=== PATIENT | male | born 1950 | race Caucasian/White ===

== ENCOUNTER 2019-02-13 06:42 | Day surgery (SDC) | payer MEDICARE, OTHER ==
[2019-02-13] MEDS ORDERED: fentaNYL 100 MCG/2 ML SDV IV ONE (06:43)
[2019-02-13] MEDS ORDERED: Midazolam 1 MG/ML 2 ML SDV IV ONE (06:43)
[2019-02-13] MEDS ORDERED: Propofol 200 MG/20 ML SDV IV ONE ×2 (06:43)
[2019-02-13] MEDS ORDERED: Lidocaine 2% 5 ML SDV INJECT ONE (06:43)
[2019-02-13] MEDS ORDERED: Dexamethasone 4 MG/ML 5 ML MDV IVPUSH ONE (06:43)
[2019-02-13] MEDS ORDERED: Ketorolac 30 MG/ML SDV IVPUSH ONE (06:43)
[2019-02-13] MEDS ORDERED: Ondansetron 4 MG/2 ML SDV IVPUSH ONE (06:43)
[2019-02-13] MEDS ORDERED: ceFAZolin 1 GM Vial IV ONE (06:45)
[2019-02-13] MEDS ORDERED: Sodium Chloride 0.9% 10 ML Syringe FLUSH PRN (06:45)
[2019-02-13] MEDS ORDERED: Lactated Ringers 1,000 ML IV SCH (06:45)
[2019-02-13] MEDS ORDERED: ceFAZolin 1 GM in Sodium Chloride 0.9% 50 ML IV ONE (06:45)
[2019-02-13] MEDS ORDERED: Lidocaine 1% with EPINEPHrine 1:100,000 20 ML MDV INJECT ONE (08:13)
[2019-02-13] MEDS ORDERED: Bupivacaine 0.5% 30 ML SDV INJECT ONE (08:13)
[2019-02-13] MEDS ORDERED: Acetaminophen/HYDROcodone 325-5 MG Tab PO PRN (09:15)
--- NOTE | 2019-02-13 09:15 | PCM.OPNOTE ---
- General Post-Op/Procedure Note Date of Surgery/Procedure: 02/13/19 Operative Procedure(s): rih repair with mesh Findings: large direct hernia Pre Op Diagnosis: rih Post-Op Diagnosis: Same Anesthesia Technique: General LMA, Local (9 ml 1 % lido with epi/0.5% buvipicaine) Primary Surgeon: Randal Harris Anesthesia Provider: Eileen Edgar Pathology: none Fluid Replacement, Intraop: 1,000 EBL in mLs: 5 Complications: None Condition: Good Free Text/Narrative:: see dictation
--- NOTE | 2019-02-13 16:04 | OR ---
DATE OF OPERATION: 02/13/2019 SURGEON: Randal Harris MD PROCEDURE PERFORMED: Right inguinal hernia repair with mesh. PREOPERATIVE DIAGNOSIS: Right inguinal hernia without mention of obstruction or gangrene. POSTOPERATIVE DIAGNOSIS: Right inguinal hernia without mention of obstruction or gangrene. INDICATIONS FOR PROCEDURE: This is a 68-year-old white male who had an incarcerated hernia that was reduced several weeks ago and he now presents for repair of this right-sided inguinal hernia. INTRAOPERATIVE FINDINGS: Direct hernia was noted. 9 mL of our local was used for intraoperative analgesia. A mesh patch, Bard mesh preshaped, lot number [id number] with a reference #[id number], expiration date 07/02/2022 was used in the repair of the defect. DESCRIPTION OF OPERATION: After an excellent LMA anesthetic was administered, the patient was prepped and draped in the usual sterile manner. The planned incision site was infiltrated with a 1:1 mixture of our local. Essentially was planned for an intersection point of the inguinal ligament approximately nursing home between the anterior-superior iliac spine and the symphysis pubis. More local was also used in the deep infiltration approximately 1 fingerbreadth medial to the anterior-superior iliac spine by infiltrating with local and doing a deep intermuscular injection. Our incision was then carried out. Electrocautery was used to dissect down to the aponeurosis of the external oblique. The external oblique had local placed underneath it and then a titi was made through the external oblique and carried out through the external ring. The cord was mobilized and controlled with a 1 inch [place] drain. The ilioinguinal nerve was attempted to be visualized on the cord, but we were unable to do so. The cord was then skeletonized, then a large direct hernia was reduced. A small cord lipoma was also dissected free and the base was clamped, divided, and tied with a 2-0 Vicryl tie. The transversalis was then used to imbricate the laxity of the floor of the canal with interrupted 0 Ethibond. The mesh was then laid on the floor of the canal and the inferior edge was tacked to the inguinal ligament until we were lateral to the spermatic cord. The keyhole was then closed with more running 2-0 Prolene. At this point, the ilioinguinal nerve was noted superior. Looked like it would interfere with the mesh, and therefore to prevent the wound neuroma, this was clamped, divided, and tied with 2-0 Vicryl tie. The wound defect was then irrigated. The aponeurosis was then closed with a running 3-0 Vicryl. Magan fascia and the skin were closed with a running 3-0 Vicryl. Dressing was applied. Needle, sponge, and instrument counts were reported as correct. The patient was taken to recovery room in good condition. /[id number] /MODL
== END 2019-02-13 10:26 | disposition home or self-care (01) ==
LOC: FB.SDS 06:42
PROVIDERS: ATTEND Surgery
DX: K40.90 Unilateral inguinal hernia, without obstruction or gangrene, not specified as recurrent (principal)
CPT/HCPCS: 49507; 94150; A9270; C1713; C1781; J0690; J1100; J1885; J2001; J2250; J2405; J2704; J3010; J3490; J7120